=== PATIENT | female | born 1950 | race Caucasian/White ===

== ENCOUNTER 2019-10-12 07:42 | Day surgery (SDC) | payer MEDICARE ==
[~2019-10-12] VITALS: Ht 162.6 cm; Wt 60.2 kg
[~2019-10-12 07:42] MED LIST: ASCO500 PO; Advil200 M1 PO; CALCIUM 500-VI1 EAC2 PO; CENTRUM SILVER1 EAC2 PO; CYCL10 PO; Celexa20 MG PO; DIAZ10 PO; FAMO20 PO; LEVO-T88 MCG PO; LEVSOD75 PO; LOSA25 PO; METO25 PO; OMEPRAZOLE20 MG PO; OXYC10ER PO; OXYC5 PO; Omega 3 1,0001 EACH PO
--- NOTE | 2019-10-12 11:43 | NUR ---
10/12/19 1143 Shane Vidal LATE ENTRY: PT'S IV INFILTRATED, RN REMOVED IV. PREASSURE PLACED ON THE RIGHT HAND. IV ATTEMPT ON LEFT HAND AND INFILTRATED. IV ATTEMPT ON LEFT AC AND IS PATENT.
== END 2019-10-12 10:05 | disposition home or self-care (01) ==
LOC: ORSCSDS 07:42
PROVIDERS: Internal Medicine Gastroenterology
PROC: 0DBH8ZX Excision of Cecum, Via Natural or Artificial Opening Endoscopic, Diagnostic (ICD-10-PCS; principal; 2019-10-12 09:00)
DX: Z12.11 Encounter for screening for malignant neoplasm of colon (principal); D12.0 Benign neoplasm of cecum; K57.30 Diverticulosis of large intestine without perforation or abscess without bleeding; K64.8 Other hemorrhoids; I10 Essential (primary) hypertension; E03.9 Hypothyroidism, unspecified; K21.9 Gastro-esophageal reflux disease without esophagitis; Z79.899 Other long term (current) drug therapy
CPT/HCPCS: 88305; J2704; J7120

== ENCOUNTER 2021-04-02 08:38 | Day surgery (SDC) | payer MEDICARE, SELFPAY ==
[~2021-04-02] VITALS: Ht 162.6 cm; Wt 62.2 kg
--- NOTE | 2021-04-02 09:48 | NUR ---
Ambulatory in Day Surgery History, Chart, Medications and Allergies reviewed before start of procedure. Lungs clear T/O to Auscultation. Patient confirms NPO status and agrees with scheduled surgery. Pre-Op teaching done. Pt verbalizes understanding. Patient States Post-Procedure ride home has been arranged.
--- NOTE | 2021-04-02 11:09 | NUR ---
04/02/21 1109 William Lloyd NO ANTIBIOTICS NEEDED PER DR VELEZ
--- NOTE | 2021-04-02 13:06 | NUR ---
Dressing to procedure site clean, dry, intact with no visible drainage, swelling, erythema or bruising noted. Discharge instructions reviewed with patient. Patient verbalizes understanding. Copy given to patient to take home. Patient States Post-Procedure ride home has been arranged. Discharged via wheelchair to private car for ride home.
== END 2021-04-02 12:53 | disposition home or self-care (01) ==
LOC: ORSCMMR 08:38 → ORD 09:30 → ORSCMMR 09:30
PROVIDERS: Obstetrics & Gynecology
PROC: 0UT54ZZ Resection of Right Fallopian Tube, Percutaneous Endoscopic Approach (ICD-10-PCS; principal; 2021-04-02 09:30)
PROC: 0UT04ZZ Resection of Right Ovary, Percutaneous Endoscopic Approach (ICD-10-PCS; principal; 2021-04-02 09:30)
DX: D27.0 Benign neoplasm of right ovary (principal); K66.0 Peritoneal adhesions (postprocedural) (postinfection); I10 Essential (primary) hypertension; E03.9 Hypothyroidism, unspecified; Z79.899 Other long term (current) drug therapy; K21.9 Gastro-esophageal reflux disease without esophagitis; M79.7 Fibromyalgia
CPT/HCPCS: 88305; J1100; J1885; J2405; J2704; J3010; J7120